=== PATIENT | female | born 1965 | race Caucasian/White ===

== ENCOUNTER 2024-05-12 16:14 | Inpatient (IN) | payer MEDICAID ==
[~2024-05-12] VITALS: Ht 167.6 cm; Wt 60.0 kg
[~2024-05-12 16:14] MED LIST: ATEN100T PO; FLUT1SPR21; GABA-1250 PO; LEVO500T31 PO; METH-1214 PO
[2024-05-12 17:11] LABS: Urine Bacteria None Seen /hpf (None Seen)
--- NOTE | 2024-05-12 17:11 | ED.PDOC ---
GI ASSESSMENT HPI Comments This is a 58-year-old female who comes in with chief complaint of shortness a breath as well as left upper quadrant abdominal pain. The patient states that she is currently on home oxygen at 2 L nasal cannula. She denies any cough for the chest pain. The patient denies any nausea, vomiting or diarrhea. She states that she is having pressure type pain rated as a 5/10 in the left upper quadrant. She has also had some leg edema. Chief Complaint: Abdominal Pain Time Seen by MD: 16:30 Primary Care Provider: NONE Reviewed Notes: Nurses Notes, Cloth Tester Notes, Medications, Allergies (Allergies listed above) Allergies: Coded Allergies: Promethazine (Verified Allergy, Severe, 07/27/18) Propoxyphene (Verified Allergy, Severe, 07/27/18) Aspirin (Verified Allergy, Unknown, 07/27/18) Codeine (Verified Allergy, Unknown, 07/27/18) Erythromycin (Verified Allergy, Unknown, 07/27/18) Ibuprofen (Verified Allergy, Unknown, 07/27/18) Ketorolac Tromethamine (Verified Allergy, Unknown, 07/27/18) Ondansetron (Verified Allergy, Unknown, 07/27/18) Penicillins (Verified Allergy, Unknown, 07/27/18) Home Meds Active Scripts Levofloxacin (Levaquin) 500 Mg Tab, 500 MG PO DAILY, #5 Prov:HENRIK MALIK MD 07/28/18 Gabapentin (Gabapentin) 300 Mg Cap, 300 MG PO TID, #120 CAP Prov:HENRIK MALIK MD 07/28/18 Reported Medications Methadone Hcl (METHADONE HCL TABLET) 10 Mg Tb, 139 MG GT DAILY 07/24/18 Fluticasone Propionate (Nasal) (Allergy Nasal [place] 24 Ho) 50 Mcg/Act Spr, 50 MCG NA DAILY, SPR 07/24/18 Atenolol (Atenolol) 100 Mg Tab, 1 TAB PO BID 04/19/12 Information Source: Patient, Emergency Med Personnel Mode of Arrival: EMS Timing: Days Duration: Since onset Prehospital treatment: None Quality: Aching, Cramping Vomitus: None Stool: Normal Severity: Moderate Recent: None Recent Hx of: None Pain Location: LUQ Modifying Factors: Nothing Associated sign and symptoms: Abdominal Pain Past Medical History PAST MEDICAL HISTORY: CHF, ESRD, HTN, [place] Surgical History: Appendectomy, Hysterectomy, Tonsillectomy Surgical History (Other): Back surgery, neck surgery, knees, carpal tunnel PRODUCT LINE MANAGER History: Denies all PRODUCT LINE MANAGER Hx Family History Family History: Family hx of heart lindsey Social History Smoker: Quit Less Than 1 Year Alcohol: Denies ETOH Use Drugs: Denies Drug Use Lives In: Home Constitutional: denies: chills, diaphoresis, fatigue, fever, malaise, sweats, weakness, others EENTM: denies: blurred vision, double vision, ear bleeding, ear discharge, ear drainage, ear pain, ear ringing, eye pain, eye redness, hearing loss, mouth pain, mouth swelling, nasal discharge, nose bleeding, nose congestion, nose pain, photophobia, tearing, throat pain, throat swelling, voice changes, others Respiratory: reports: shortness of breath; denies: cough, hemoptysis, orthopnea, SOB at rest, SOB with excertion, stridor, wheezing, others Cardiovascular: denies: chest pain, dizzy spells, diaphoresis, Dyspnea on exertion, edema, irregular heart beat, left arm pain, lightheadedness, palpitations, PND, syncope, others Gastrointestinal: reports: abdominal pain; denies: abdomen distended, blood streaked bowels, constipated, diarrhea, dysphagia, difficulty swallowing, hematemesis, melena, nausea, poor appetite, poor fluid intake, rectal bleeding, rectal pain, vomiting, others Genitourinary: denies: abnormal vagina bleeding, burning, dyspareunia, dysuria, flank pain, frequency, hematuria, incontinence, pain, , vagina discharge, urgency, others Neurological: denies: dizziness, fainting, headache, left sided numbness, left sided weakness, numbness, paresthesia, pre-existing deficit, right sided numbness, right sided weakness, seizure, speech problems, tingling, tremors, weakness, others Musculoskeletal: denies: back pain, gout, joint pain, joint swelling, muscle pain, muscle stiffness, neck pain, others Integumetry: denies: bruises, change in color, change in hair/nails, dryness, laceration, lesions, lumps, rash, wounds, others Allergic/Immunocompromised: denies: Difficulty Healing, Frequent Infections, Hives, Itching, others Hematologic/Lymphatic: denies: anemia, blood clots, easy bleeding, easy bruising, swollen glands, others Endocrine: denies: excessive hunger, excessive sweating, excessive thirst, excessive urination, flushing, intolerance to cold, intolerance to heat, unexplained weight gain, unexplained weight loss, others Psychiatric: denies: anxiety, bipolar disorder, depression, hopeless, panic disorder, schizophrenia, sleepless, suicidal, others Physical Exam General Appearance: Mild Distress HEENT: Normal ENT Inspection, Pharynx Normal, TMs Normal Neck: Full Range of Motion, Non-Tender, Normal, Normal Inspection Respiratory: Chest Non-Tender, Lungs Clear, No Accessory Muscle Use, No Respiratory Distress, Normal Breath Sounds Cardiovascular: No Edema, No JVD, No Murmur, No Gallop, Normal Peripheral Pulses, Regular Rate/Rhythm Breast Exam: Deferred Gastrointestinal: LUQ, No Organomegaly, No Pulsatile Mass, Normal Bowel Sounds, Soft, Tenderness Genitalia: Deferred Pelvic: Deferred Rectal: Deferred Extremities: No calf tenderness, Normal capillary refill, Normal inspection, Normal range of motion, Non-tender, No pedal edema Musculoskeletal : Apperance: Normal Neurologic: Alert, evp marketing II-XII nml as Tested, No Motor Deficits, Normal Affect, Normal Mood, No Sensory Deficits Cerebellar Function: Normal Reflexes: Normal Skin: Dry, Normal Color, Warm Lymphatic: No Adenopathy Was a procedure done? Was a procedure done?: No GI differential Dx Differential Diagnosis: Appendicitis, Gastritis/PUD, Gastroenteritis, Inflammatory BD, Pancreatitis, UTI, Electrolyte Imbalance, Food Poisoning X-Ray, Labs, Meds, VS Vital Signs Date Time Temp Pulse Resp B/P (MAP) Pulse Ox O2 Delivery O2 Flow Rate FiO2 05/12/24 20:00 98.4 94 16 159/87 (111) 94 98.4 05/12/24 19:30 Nasal Cannula* 4 36 05/12/24 18:51 79 18 164/87 (112) 96 05/12/24 17:26 Nasal Cannula* 6 44 05/12/24 17:23 98.4 82 20 178/89 (118) 93 98.4 05/12/24 16:16 97.9 109 13 166/76 (106) 97 Lab Test 05/12/24 17:07 05/12/24 17:00 Range/Units White Blood Count 9.7 4.4-10.8 10^3/uL Red Blood Count 3.92 L 4.0-5.20 10^6/uL Hemoglobin 11.5 L 12.2-16.2 g/dL Hematocrit 35.8 L 36.0-46.0 % Mean Corpuscular Volume 91.5 80.0-100.0 fL Mean Corpuscular Hemoglobin 29.3 28.0-32.0 pg Mean Corpuscular Hemoglobin Concent 32.1 32.0-36.0 g/dL Red Cell Distribution Width 18.0 H 11.8-14.3 % Platelet Count 260 140-450 10^3/uL Mean Platelet Volume 6.4 L 6.9-10.8 fL Neutrophils (%) (Auto) 69.1 37.0-80.0 % Lymphocytes (%) (Auto) 22.0 10.0-50.0 % Monocytes (%) (Auto) 6.6 0.0-12.0 % Eosinophils (%) (Auto) 1.7 0.0-7.0 % Basophils (%) (Auto) 0.6 0.0-2.0 % Neutrophils # (Auto) 6.7 1.6-8.6 10 ^3/uL Lymphocytes # (Auto) 2.1 0.4-5.4 10 ^3/uL Monocytes # (Auto) 0.6 0-1.3 10 ^3/uL Eosinophils # (Auto) 0.2 0-0.8 10 ^3/uL Basophils # (Auto) 0.1 0-0.2 10 ^3/uL Nucleated Red Blood Cells 0.1 % Sodium Level 139 136-145 mmol/L Potassium Level 4.2 3.5-5.1 mmol/L Chloride Level 102 98-107 mmol/L Carbon Dioxide Level 32 H 20-31 mmol/L Anion Gap 5 5-15 Blood Urea Nitrogen 10 9-23 mg/dL Creatinine 0.71 0.550-1.02 mg/dL Glomerular Filtration Rate Calc 98 >90 mL/min BUN/Creatinine Ratio 14.1 10.0-20.0 Serum Glucose 101 74-106 mg/dL Calcium Level 10.1 8.7-10.4 mg/dL Total Bilirubin 0.8 0.2-1.0 mg/dL Aspartate Amino Transferase (AST) 18 13-40 U/L Alanine Aminotransferase (ALT) 10 7-40 U/L Alkaline Phosphatase 195 H 46-116 U/L Total Protein 7.8 5.7-8.2 g/dL Albumin 4.2 3.2-4.8 g/dL Lipase 30 12-53 U/L Urine Color Colorless Yellow Urine Clarity Clear Clear Urine pH 7.0 5.0-9.0 Urine Specific [place] 1.005 1.001-1.035 Urine Protein Trace H Negative Urine Ketones Negative Negative Urine Blood Negative Negative /uL Urine Nitrite Negative Negative Urine Bilirubin Negative Negative Urine Urobilinogen Normal Negative mg/dL Urine Leukocyte Esterase 2+ Negative /uL Urine RBC 1 0 - 4 /hpf Urine Microscopic WBC 26 H 0-5 /HPF Urine Squamous Epithelial Cells Few <5 /hpf Urine Bacteria None seen None Seen /hpf Urine Glucose Normal Normal mg/dL Current Medications Medications (Trade) Dose Ordered Sig/Thelma Route Start Time Stop Time Status Last Admin Ceftriaxone Sodium 50 ml @ 100 mls/hr ONCE ONCE IV 05/12/24 18:45 05/12/24 19:14 DC 05/12/24 18:55 CT ABDOMEN AND PELVIS WITHOUT CONTRAST IMPRESSION: 1. Moderate size area of consolidation in the right lower lobe with air bronchograms compatible with airspace disease such as pneumonia. There is small right pleural effusion. 2. Moderate amount of stool in the colon. 3. 1.0 cm hyperdense hemorrhagic/proteinaceous cysts in the mid to lower pole of the left kidney. IV Hep-Lock was established Patient's urine test is positive for UTI The patient was started on Rocephin IV piggyback The patient's CBC and chemistry panel is within normal limits We spoke hospitalist and he is coming and evaluated the patient The patient does have findings pneumonia The patient will have the final disposition done by the hospitalist Images Reviewed?: Images reviewed and evaluated by me Time of 1ST Reevaluation: 17:11 Reevaluation 1ST: Unchanged Patient Education/Counseling: Diagnosis, Treatment, Prognosis Family Education/Counseling: No Family Present Departure 1 Departure Time of Disposition: 21:19 Impression: Primary Impression: Abdominal pain of unknown etiology Additional Impression: Pneumonia Qualified Codes: J18.9 - Pneumonia, unspecified organism Disposition: ADMITTED INPATIENT Condition: Fair Critical Care Note Critical Care Time?: No Stability Stability form required: Yes Unstable for transfer: ED Physician Assesment (Clinical assesment) Heart Score Heart Score: Heart Score Response (Comments) Value History N/A 0 EKG N/A 0 Age N/A 0 Risk Factors N/A 0 Troponin N/A 0 Total 0 I personally scribed for ALLY CHONG MD ([email or web address]) on 05/12/24 at 17:49. Electronically submitted by Tanja Trevino ([email or web address]). ALLY CHONG MD May 12, 2024 17:11
[2024-05-12 17:14] LABS: Basophils # (auto) 0.1 10 ^3/uL (0-0.2); Basophils % (auto) 0.6 % (0.0-2.0); Eosinophils # (auto) 0.2 10 ^3/uL (0-0.8); Eosinophils % (auto) 1.7 % (0.0-7.0); Hematocrit 35.8 % (36.0-46.0); Hemoglobin 11.5 g/dL (12.2-16.2); Lymphocytes # (auto) 2.1 10 ^3/uL (0.4-5.4); Mean Corpuscular Hemoglobin 29.3 pg (28.0-32.0); Mean Corpuscular Hgb Conc. 32.1 g/dL (32.0-36.0); Mean Corpuscular Volume 91.5 fL (80.0-100.0); Monocytes # (auto) 0.6 10 ^3/uL (0-1.3); Monocytes % (auto) 6.6 % (0.0-12.0); Neutrophils # (auto) 6.7 10 ^3/uL (1.6-8.6); Neutrophils % (auto) 69.1 % (37.0-80.0); Nucleated Red Blood Cells % 0.1 %; Platelet Count (auto) 260 10^3/uL (140-450); Red Blood Cells 3.92 10^6/uL (4.0-5.20); White Blood Cell 9.7 10^3/uL (4.4-10.8)
--- NOTE | 2024-05-12 17:30 | DVH ---
CT ABDOMEN AND PELVIS WITHOUT CONTRAST CLINICAL HISTORY: pain TECHNIQUE: Multiple contiguous axial images of the abdomen and pelvis without intravenous contrast. The images were reformatted degenerate coronal and sagittal reconstructions. All CT scans at this medical facility are performed using dose modulation techniques as appropriate t o a performed exam including the following:Automated exposure control was utilized; adjustment of the MA and/or KV according to patient size; and use of iterative reconstruction technique. Radiation Dose Information: CT Dose: CTDI volume is 10.67 mGy. Dose-length product is 554.04 mGy*cm Comparison: None FINDINGS: Evaluation of the abdomen and pelvis is limited without intravenous contrast. The left kidney appears smaller in size in comparison to the right. There is no evidence of nephrolit hiasis or hydronephrosis. There is a 1.0 cm hyperdense cyst in the mid to lower pole of the left kidn ey. The liver, gallbladder, pancreas, adrenal glands, and spleen appear within normal limits. There is no free fluid or free air. The stomach grossly appears unremarkable. The small and large bowel loops demonstrate normal caliber . There is moderate amount of stool intermixed with air throughout the colon. There are calcified atherosclerotic changes in the abdominal aorta. The IVC appears within normal li mits. The bladder is collapsed limiting evaluation. The uterus is surgically absent. . There is no gross e vidence of a pelvic mass. There is no free fluid collection. There is moderate size area of consolidation in the right lower lobe with air bronchograms compatible with airspace disease such as pneumonia. There is small right pleural effusion. There is mild scarri ng versus atelectasis in the left lung base. There is fusion hardware the L4-L5 level generating moderate streak artifact. There are multilevel d egenerative changes in the lumbar spine. IMPRESSION: 1. Moderate size area of consolidation in the right lower lobe with air bronchograms compatible with airspace disease such as pneumonia. There is small right pleural effusion. 2. Moderate amount of stool in the colon. 3. 1.0 cm hyperdense hemorrhagic/proteinaceous cysts in the mid to lower pole of the left kidney. HS:Y
[2024-05-12 17:36] LABS: Alanine Aminotransferase 10 U/L (7-40); Albumin 4.2 g/dL (3.2-4.8); Anion Gap 5 (5-15); Aspartate Aminotransferase 18 U/L (13-40); BUN/Creatinine Ratio 14.1 (10.0-20.0); Bilirubin, Total 0.8 mg/dL (0.2-1.0); Blood Urea Nitrogen 10 mg/dL (9-23); Calcium 10.1 mg/dL (8.7-10.4); Chloride 102 mmol/L (98-107); Glucose 101 mg/dL (74-106); Lipase 30 U/L (12-53); Potassium 4.2 mmol/L (3.5-5.1); Sodium 139 mmol/L (136-145); Total Protein 7.8 g/dL (5.7-8.2)
[2024-05-12 17:58] LABS: Urine Blood Negative /uL (Negative); Urine Clarity Clear (Clear); Urine Color Colorless (Yellow); Urine Protein, UAD TRACE (Negative); Urine Specific Gravity 1.005 (1.001-1.035); Urine Squamous Epithelial Cell FEW /hpf (<5); Urine Urobilinogen Normal (Negative); Urine WBC 26 /HPF (0-5)
[2024-05-12 18:02] LABS: Alkaline Phosphatase 195 U/L (46-116); Carbon Dioxide 32 mmol/L (20-31)
[2024-05-12] MEDS: cefTRIAXone 1GM/50ML D5W 50 ML IV ONE (18:55)
--- NOTE | 2024-05-12 21:08 | DVH ---
XY CHEST TWO VIEWS ROUTINE CLINICAL HISTORY: hypoxia COMPARISON: None TECHNIQUE: Frontal and lateral view of the chest was obtained FINDINGS: Lines and Tubes: None Lungs: Right mid to lower lung zone opacification. Elevated right hemidiaphragm. Mild blunting of the left costophrenic angle with indistinctness of the right costophrenic angle. Pleura: No effusion. No pneumothorax. Cardiomediastinal contours: Unremarkable Bones: No acute osseous abnormality. IMPRESSION: Right mid to lower lung zone pneumonia with small bilateral pleural effusions.
[2024-05-12] MEDS ORDERED: MORPHINE SULFATE INJ 2 MG/ml SYRG IV PRN (21:30)
[2024-05-12] MEDS ORDERED: NITROGLYCERIN 0.4 MG SL TAB SL PRN (21:30)
[2024-05-12] MEDS ORDERED: ACETAMINOPHEN 325 MG TAB PO PRN (21:30)
[2024-05-12] MEDS ORDERED: DOCUSATE SOD 100 MG CAP PO PRN (21:30)
[2024-05-12] MEDS: IPRATROPIUM BROM 0.5 MG/2.5ML INH SOL NEB SCH (21:43)
[2024-05-12] MEDS: ALBUTEROL SULF 2.5 MG/0.5ML(0.5%) NEB SOLN NEB SCH (21:43)
[2024-05-12 21:44] VITALS: PULSE 83; RESP 16; O2SAT 97
[2024-05-12 21:51] VITALS: PULSE 89; RESP 16; O2SAT 100
[2024-05-12 21:57] VITALS: BP 159/87; PULSE 83; RESP 16; O2SAT 99
[2024-05-12] MEDS ORDERED: APIX5TAB PO (23:46)
[2024-05-13] VITALS (19 sets, daily range): BP systolic 98–155; BP diastolic 61–90; PULSE 76–91; RESP 16–20; TEMP 97.5–98.8; O2SAT 94–100
[2024-05-13] MEDS ORDERED: hydrALAZINE HCL 20 MG/ML VL IV PRN (00:15)
[2024-05-13] MEDS: METHADONE HCL 10 MG TAB PO ONE (00:32)
[2024-05-13] MEDS ORDERED: ATEN50TA PO (01:28)
--- NOTE | 2024-05-13 01:29 | DVHHP2 ---
DILLON LUCERO CHUCK TENDER 05/13/24 0129: History of Present Illness Reason for Visit: Shortness of breath History of Present Illness 58-year-old female past medical history of hypertension, CHF, left lower extremity DVT on Eliquis, history of opiate dependence on methadone presents with complaints of worsening shortness of breath and elevated blood pressure. Patient states she was visited by a home health nurse we will advise her to go to the emergency department for evaluation. Patient does endorse been oxygen- dependent 2 L nasal cannula at home. Also endorses bilateral pain under the ribcage. While in the emergency department patient did require additional supplemental oxygen at 4-5 L nasal cannula to maintain oxygen saturation 95%. During the emergency department evaluation CXR did demonstrate right lower lobe pneumonia. At this time patient is not have any fevers, chills, chest pain, nausea, vomiting, palpitations, diaphoresis. Cardiovascular: CHF, HTN Psych: Addictions Smoke: Quit ALCOHOL: none Drugs: None Lives: with Family Review of Systems Constitutional: No: Fever, Chills, Sweats, Weakness, Malaise, Other Eyes: No: Pain, Vision change, Conjunctivae inflammation, Eyelid inflammation, Other, Redness ENT: No: Ear pain, Ear discharge, Nose pain, Nose discharge, Nose congestion, Mouth pain, Mouth swelling, Throat pain, Throat swelling, Other Respiratory: Shortness of breath; No: Cough, Dry, SOB with excertion, Wheezing, Hemoptysis, Pleuritic Pain, Sputum, Wheezing, Other Cardiovascular: Edema; No: Chest Pain, Palpitations, Orthopnea, Paroxysmal Noc. Dyspnea, Lt Headedness, Other Gastrointestinal: No: Nausea, Vomiting, Abdominal Pain, Diarrhea, Constipation, Melena, Hematochezia, Other Genitourinary: No Dysuria, No Frequency, No Incontinence, No Hematuria, No Retention, No Other Musculoskeletal: No: other, neck pain, shoulder pain, arm pain, back pain, hand pain, leg pain, foot pain Skin: No: Rash, Lesions, Jaundice, Bruising, Other Neurological: No: Weakness, Numbness, Incoordination, Change in speech, Confusion, Seizures, Other Allergies: Coded Allergies: Promethazine (Verified Allergy, Severe, 07/27/18) Propoxyphene (Verified Allergy, Severe, 07/27/18) Aspirin (Verified Allergy, Unknown, 07/27/18) Codeine (Verified Allergy, Unknown, 07/27/18) Erythromycin (Verified Allergy, Unknown, 07/27/18) Ibuprofen (Verified Allergy, Unknown, 07/27/18) Ketorolac Tromethamine (Verified Allergy, Unknown, 07/27/18) Ondansetron (Verified Allergy, Unknown, 07/27/18) Penicillins (Verified Allergy, Unknown, 07/27/18) Medications Current Medications Medications Dose Ordered Sig/Thelma Route Start Time Stop Time Status Last Admin Dose Admin Docusate Sodium 100 mg BIDPRN PRN PO 05/12/24 21:30 Acetaminophen 650 mg Q6HP PRN PO 05/12/24 21:30 Nitroglycerin 0.4 mg Q5MINP PRN SL 05/12/24 21:30 Morphine Sulfate 2 mg Q30M PRN IV 05/12/24 21:30 Levofloxacin/ Dextrose 100 ml @ 100 mls/hr DAILY IV 05/13/24 10:00 Albuterol 2.5 mg Q4HR NEB 05/12/24 22:00 05/12/24 21:43 2.5 MG Ipratropium [place] 0.5 mg Q4HR NEB 05/12/24 22:00 05/12/24 21:43 0.5 MG Pantoprazole Sodium 40 mg DAILY IV 05/13/24 10:00 Methadone HCl 10 mg DAILY PO 05/13/24 10:00 Atenolol 50 mg DAILY PO 05/13/24 10:00 Hydralazine HCl 10 mg PRN PRN IV 05/13/24 00:15 Apixaban 5 mg BID PO 05/13/24 10:00 Exam Vital Signs Vital Signs Date Time Temp Pulse Resp B/P (MAP) Pulse Ox O2 Delivery O2 Flow Rate FiO2 05/13/24 00:00 83 14 149/88 (108) 99 05/12/24 21:57 4.0 05/12/24 21:44 Nasal Cannula 05/12/24 21:44 36 05/12/24 20:00 98.4 98.4 General Appearance: Alert, Oriented X3, Cooperative, moderate distress HEENT: Atraumatic, PERRLA Respiratory: Normal air movement, Other (Diminished air exchange bilaterally. Right lower lobe rhonchi) Cardiovascular: Regular rate, Normal S1, Normal S2 Abdominal: Normal bowel sounds, Soft, No tenderness Extremities: No clubbing, No cyanosis, Other (BLE edema) Skin: No rashes, No breakdown Neuro: Normal speech, Strength at 5/5 X4 ext Psych/Mental Status: Mental status NL, Mood NL Labs/Xrays Labs Test 05/12/24 17:07 05/12/24 17:00 Range/Units White Blood Count 9.7 4.4-10.8 10^3/uL Red Blood Count 3.92 L 4.0-5.20 10^6/uL Hemoglobin 11.5 L 12.2-16.2 g/dL Hematocrit 35.8 L 36.0-46.0 % Mean Corpuscular Volume 91.5 80.0-100.0 fL Mean Corpuscular Hemoglobin 29.3 28.0-32.0 pg Mean Corpuscular Hemoglobin Concent 32.1 32.0-36.0 g/dL Red Cell Distribution Width 18.0 H 11.8-14.3 % Platelet Count 260 140-450 10^3/uL Mean Platelet Volume 6.4 L 6.9-10.8 fL Neutrophils (%) (Auto) 69.1 37.0-80.0 % Lymphocytes (%) (Auto) 22.0 10.0-50.0 % Monocytes (%) (Auto) 6.6 0.0-12.0 % Eosinophils (%) (Auto) 1.7 0.0-7.0 % Basophils (%) (Auto) 0.6 0.0-2.0 % Neutrophils # (Auto) 6.7 1.6-8.6 10 ^3/uL Lymphocytes # (Auto) 2.1 0.4-5.4 10 ^3/uL Monocytes # (Auto) 0.6 0-1.3 10 ^3/uL Eosinophils # (Auto) 0.2 0-0.8 10 ^3/uL Basophils # (Auto) 0.1 0-0.2 10 ^3/uL Nucleated Red Blood Cells 0.1 % Sodium Level 139 136-145 mmol/L Potassium Level 4.2 3.5-5.1 mmol/L Chloride Level 102 98-107 mmol/L Carbon Dioxide Level 32 H 20-31 mmol/L Anion Gap 5 5-15 Blood Urea Nitrogen 10 9-23 mg/dL Creatinine 0.71 0.550-1.02 mg/dL Glomerular Filtration Rate Calc 98 >90 mL/min BUN/Creatinine Ratio 14.1 10.0-20.0 Serum Glucose 101 74-106 mg/dL Calcium Level 10.1 8.7-10.4 mg/dL Total Bilirubin 0.8 0.2-1.0 mg/dL Aspartate Amino Transferase (AST) 18 13-40 U/L Alanine Aminotransferase (ALT) 10 7-40 U/L Alkaline Phosphatase 195 H 46-116 U/L Total Protein 7.8 5.7-8.2 g/dL Albumin 4.2 3.2-4.8 g/dL Lipase 30 12-53 U/L Urine Color Colorless Yellow Urine Clarity Clear Clear Urine pH 7.0 5.0-9.0 Urine Specific [place] 1.005 1.001-1.035 Urine Protein Trace H Negative Urine Ketones Negative Negative Urine Blood Negative Negative /uL Urine Nitrite Negative Negative Urine Bilirubin Negative Negative Urine Urobilinogen Normal Negative mg/dL Urine Leukocyte Esterase 2+ Negative /uL Urine RBC 1 0 - 4 /hpf Urine Microscopic WBC 26 H 0-5 /HPF Urine Squamous Epithelial Cells Few <5 /hpf Urine Bacteria None seen None Seen /hpf Urine Glucose Normal Normal mg/dL Assessment/Plan Assessment/Plan Hypoxia Right lobe pneumonia UTI Hx left lower extremity DVT on Eliquis Hx heroin use currently on methadone Plan Admit telemetry Consult pulmonology. Bronchodilators. As needed supplemental O2 to maintain O2 saturation greater Than 93%. RT monitoring. IV ABX Urine culture pending Continue home medications. Social service consult for home safety evaluation Gi ppx protonix / DVT ppx SCD on oral anticoagulation Plan discussed with: Patient My Orders Orders - DILLON LUCERO NP Procedure Category Date Status Time Chest Two Views XY 05/12/24 Resulted Routine 20:39 Admit ADMIT 05/12/24 Transmitted 21:16 Code Status CODE 05/12/24 Transmitted 21:16 Vital Signs LAN 05/12/24 In Process 21:16 Review Orders With LAN 05/12/24 In Process Adm. 21:16 Encourage Activity As LAN 05/12/24 In Process Tolerate 21:16 Consistent DIET 05/13/24 Transmitted Carb(Ccho)Diabetes Breakfast Oxygen By Face Mask RT 05/12/24 Transmitted 21:16 Pulse Ox Cont Per Day RT 05/12/24 Logged 21:16 Pulse Oxymetry RT 05/12/24 Transmitted Assessment - 2 21:16 Docusate Sodium PHA 05/12/24 In Process Capsule (Colace 21:30 Acetaminophen Tablet PHA 05/12/24 In Process (Tylenol Tablet) 21:30 Notify Of Changes LAN 05/12/24 In Process From Base 21:16 Advance Directive LAN 05/12/24 In Process 21:16 Basic Metabolic Panel LAB 05/13/24 Logged 05:00 Basic Metabolic Panel LAB 05/14/24 Verified 05:00 Basic Metabolic Panel LAB 05/15/24 Verified 05:00 Basic Metabolic Panel LAB 05/16/24 Verified 05:00 Complete Blood Count LAB 05/13/24 Logged 05:00 Complete Blood Count LAB 05/14/24 Verified 05:00 Complete Blood Count LAB 05/15/24 Verified 05:00 Complete Blood Count LAB 05/16/24 Verified 05:00 Patient Condition ORDERS 05/12/24 Transmitted 21:16 Allergies LAN 05/12/24 In Process 21:16 Nitroglycerin PHA 05/12/24 In Process Sublingual (Ntrostat 21:30 Morphine Sulfate PHA 05/12/24 In Process Injection 21:30 Stat Ekg For Chest LAN 05/12/24 In Process Pain 21:16 Notify Md Of Changes LAN 05/12/24 In Process From Base 21:16 Rubber Roller Grinder Operator For LAN 05/12/24 In Process 24 Hours 21:16 Emergency Dysrhythmia LAN 05/12/24 In Process Protocol 21:16 Rhythm Strips Once LAN 05/12/24 In Process Every Shift 21:16 Oxygen By Nasal RT 05/12/24 Transmitted Cannula 21:16 *Consult CONS 05/12/24 Transmitted / 21:16 Levofloxacin 500mg PHA 05/13/24 In Process (Levaquin 500mg/ 100m 10:00 Albuterol Medneb PHA 05/12/24 In Process (Ventolin Medneb) 22:00 Ipratropium Medneb PHA 05/12/24 In Process (Atrovent Medneb) 22:00 Communication Order ORDERS 05/12/24 Transmitted 21:24 Urine Bacterial TAMIKO 05/12/24 In Process Culture 22:29 * Portrait Painter CONS 05/12/24 Transmitted Consult Pantoprazole PHA 05/13/24 In Process (Protonix) 10:00 Methadone Hcl Tablet PHA 05/13/24 In Process (Methadone Hcl Tabl 10:00 Atenolol Tablet PHA 05/13/24 In Process (Tenormin Tablet) 10:00 Hydralazine Injection PHA 05/13/24 In Process (Apresoline Inject 00:15 Apixaban (Eliquis) PHA 05/13/24 In Process 10:00 Date of Service: May 13, 2024 Billing Provider: CHI KLINE MD Common Visit Codes: NOT BILLABLE CHI KLINE MD 05/13/24 1503: History of Present Illness Additional Comments Additional Comments Patient's chart is reviewed and discussed with the nurse practitioner. Patient is seen and evaluated by me this afternoon. I agree with the nurse practitioner's evaluation, documentation, assessment and care plan as outlined. Review of Systems Allergies: Coded Allergies: Promethazine (Verified Allergy, Severe, 07/27/18) Propoxyphene (Verified Allergy, Severe, 07/27/18) Aspirin (Verified Allergy, Unknown, 07/27/18) Codeine (Verified Allergy, Unknown, 07/27/18) Erythromycin (Verified Allergy, Unknown, 07/27/18) Ibuprofen (Verified Allergy, Unknown, 07/27/18) Ketorolac Tromethamine (Verified Allergy, Unknown, 07/27/18) Ondansetron (Verified Allergy, Unknown, 07/27/18) Penicillins (Verified Allergy, Unknown, 07/27/18) DILLON LUCERO NP May 13, 2024 01:29 CHI KLINE MD May 13, 2024 15:03
[2024-05-13] MEDS: METHADONE HCL 10 MG TAB PO SCH ×2 (06:00→14:37)
[2024-05-13 07:27] LABS: Basophils # (auto) 0 10 ^3/uL (0-0.2); Basophils % (auto) 0.7 % (0.0-2.0); Eosinophils # (auto) 0.1 10 ^3/uL (0-0.8); Hematocrit 32.4 % (36.0-46.0); Hemoglobin 10.4 g/dL (12.2-16.2); Lymphocytes # (auto) 1.8 10 ^3/uL (0.4-5.4); Lymphocytes % (auto) 29.2 % (10.0-50.0); Mean Corpuscular Hemoglobin 29.4 pg (28.0-32.0); Mean Corpuscular Hgb Conc. 32.2 g/dL (32.0-36.0); Mean Corpuscular Volume 91.1 fL (80.0-100.0); Monocytes # (auto) 0.6 10 ^3/uL (0-1.3); Neutrophils # (auto) 3.5 10 ^3/uL (1.6-8.6); Neutrophils % (auto) 58.1 % (37.0-80.0); Nucleated Red Blood Cells % 0.2 %; Platelet Count (auto) 237 10^3/uL (140-450); Red Blood Cells 3.55 10^6/uL (4.0-5.20); Red Cell Distribution Width 17.6 % (11.8-14.3); White Blood Cell 6.1 10^3/uL (4.4-10.8)
[2024-05-13 07:43] LABS: Anion Gap 3 (5-15); Chloride 104 mmol/L (98-107); Potassium 4.6 mmol/L (3.5-5.1); Sodium 140 mmol/L (136-145)
[2024-05-13 07:44] LABS: Calcium 9.9 mg/dL (8.7-10.4)
[2024-05-13 07:48] LABS: Carbon Dioxide 33 mmol/L (20-31)
[2024-05-13 07:49] LABS: BUN/Creatinine Ratio 11.4 (10.0-20.0); Blood Urea Nitrogen 9 mg/dL (9-23); Glucose 81 mg/dL (74-106)
[2024-05-13] MEDS: ATENOLOL 25 MG TAB PO SCH (09:57)
[2024-05-13] MEDS: PANTOPRAZOLE 40 MG/10 ML VIAL INJ IV SCH (09:58)
[2024-05-13] MEDS: APIXABAN 5 MG TAB PO SCH (09:58)
[2024-05-13] MEDS ORDERED: ENOXAPARIN SOD 40 MG/0.4 ML SYRINGE SC SCH (10:00)
[2024-05-13] MEDS: levoFLOXacin 500MG 100 ML IV SCH (10:00)
[2024-05-13] MEDS ORDERED: METHADONE HCL 10 MG TAB PO SCH (10:00)
[2024-05-13] MEDS ORDERED: ATENOLOL 25 MG TAB PO SCH (10:00)
[2024-05-13] MEDS: cefTRIAXone 1GM/50ML D5W 50 ML IV SCH (14:36)
[2024-05-13] MEDS: LACTULOSE 20Gm/30ML SOLN PO ONE (14:37)
[2024-05-13] MEDS: LACTULOSE 20Gm/30ML SOLN PO SCH (21:32)
--- NOTE | 2024-05-13 23:41 | DVHINCON2 ---
Date of service: May 13, 2024 Referring Physician Toribio Phelps NP Reason for Consultation Acute hypoxic respiratory failure, pneumonia, pleural effusions History of Present Illness A 58-year-old woman with past medical history of hypertension, CHF, left lower extremity DVT on Eliquis, history of opiate dependence, on methadone, who presented to ED on 05/12/24 with complaints of worsening shortness of breath and elevated blood pressure. She was advised by home health nurse to go to the emergency department for evaluation. Patient reports being oxygen-dependent, 2 L nasal cannula at home. She c/o bilateral pain under the ribcage. While in the emergency department patient did require additional supplemental oxygen at 4-5 L nasal cannula to maintain oxygen saturation 95%. CXR demonstrated right lower lobe pneumonia. Patient was admitted for further care and pulmonary consultation is requested for evaluation and management due to the above findings. Review of Systems: 14-point review of systems negative unless otherwise noted above. Past Medical History: Hypertension, CHF, left lower extremity DVT on Eliquis, history of opiate depe ndence, on methadone. Past Surgical History: None Medications: Reviewed. Allergies: Promethazine Propoxyphene Aspirin Codeine Erythromycin Ibuprofen Ketorolac Tromethamine Ondansetron Penicillins. Family History: No family history of premature CAD. No family history of lung disorders. Social History: Former smoker. No alcohol use. Drugs: Heroin use, on methadone. Family History: Diabetes mellitus G8 MOTHER, FH: heart disease G8 FATHER, Allergies: Coded Allergies: Promethazine (Verified Allergy, Severe, 07/27/18) Propoxyphene (Verified Allergy, Severe, 07/27/18) Aspirin (Verified Allergy, Unknown, 07/27/18) Codeine (Verified Allergy, Unknown, 07/27/18) Erythromycin (Verified Allergy, Unknown, 07/27/18) Ibuprofen (Verified Allergy, Unknown, 07/27/18) Ketorolac Tromethamine (Verified Allergy, Unknown, 07/27/18) Ondansetron (Verified Allergy, Unknown, 07/27/18) Penicillins (Verified Allergy, Unknown, 07/27/18) Home Meds Active Scripts Famotidine (Pepcid AC) 20 Mg Tab, 20 MG PO DAILY, #10 TAB Prov:CHI KLINE MD 05/14/24 Ipratropium-Albuterol (Ipratropium [place]/Albut) 1 Eusebia Eusebia, 1 EUSEBIA IN TID, #30 ML Prov:CHI KLINE MD 05/14/24 Prednisone (Prednisone) 20 Mg Tab, 20 MG PO BID, #10 MG Prov:CHI KLINE MD 05/14/24 Doxycycline (Monohydrate) (Doxycycline) 100 Mg Cap, 100 MG PO BID, #10 CAP Prov:CHI KLINE MD 05/14/24 Apixaban Base (ELIQUIS) 5 Mg Tab, 5 MG PO BID, #14 TAB Prov:CHI KLINE MD 05/14/24 Reported Medications Atenolol (Atenolol) 50 Mg Tab, 50 MG PO BID 05/13/24 Methadone Hcl (METHADONE HCL TABLET) 10 Mg Tb, 115 MG PO DAILY 07/24/18 Current Medications Current Medications Medications (Trade) Dose Ordered Sig/Thelma Route PRN Reason Start Time Stop Time Status Last Admin Enoxaparin Sodium (Lovenox) 40 mg DAILY SC 05/13/24 10:00 05/13/24 00:12 DC Levofloxacin/ Dextrose 100 ml @ 100 mls/hr DAILY IV 05/13/24 10:00 05/13/24 14:01 DC Pantoprazole Sodium (Protonix) 40 mg DAILY IV 05/13/24 10:00 05/13/24 14:13 DC 05/13/24 09:58 Methadone HCl (Methadone HCl Tablet) 10 mg DAILY PO 05/13/24 10:00 05/13/24 02:06 DC Atenolol (Tenormin Tablet) 50 mg DAILY PO 05/13/24 10:00 05/13/24 02:12 DC Hydralazine HCl (Apresoline Injection) 10 mg PRN PRN IV SBP>160 05/13/24 00:15 Apixaban (Eliquis) 5 mg BID PO 05/13/24 10:00 05/13/24 21:32 Methadone HCl (Methadone HCl Tablet) 20 mg TID PO 05/13/24 06:00 05/13/24 14:13 DC 05/13/24 06:00 Atenolol (Tenormin Tablet) 50 mg BID PO 05/13/24 10:00 05/13/24 21:33 Ceftriaxone Sodium 50 ml @ 100 mls/hr DAILY@09 IV 05/13/24 14:08 05/13/24 14:36 Methadone HCl (Methadone HCl Tablet) 115 mg DAILY PO 05/13/24 14:15 05/13/24 14:37 Lactulose 30 ml BID PO 05/13/24 22:00 Vital Signs Vital Signs Date Time Temp Pulse Resp B/P (MAP) Pulse Ox O2 Delivery O2 Flow Rate FiO2 05/13/24 21:46 89 18 100 05/13/24 21:36 Nasal Cannula* 2 28 05/13/24 21:33 128/77 05/13/24 21:00 98.8 98.8 Physical Exam Gen.: Patient lying in bed in no apparent distress. On supplemental oxygen. Head: Normocephalic, atraumatic. Eyes: EOMI/PERRLA. Ears: Normal hearing. Normal anatomy. Neck/trachea: Trachea midline, supple. Nose: Normal external anatomy. Mouth: Moist mucous membranes. Chest: Decreased air entry bilaterally. No wheezing or rhonchi. Cardiovascular: Positive S1, positive S2. Regular rate and rhythm. Abdomen: Positive bowel sounds in all 4 quadrants. Soft, non-tender, non- distended. : Deferred. Rectal: Deferred. Skin: Warm, dry. Intact. Extremities: 2+ radial pulses bilaterally. No lower extremity edema. Neuro: Awake, alert, oriented x3. No gross motor or sensory deficits. Cranial nerves II through XII intact. Gait not assessed. Labs/Diagnostic Data Labs Test 05/13/24 06:44 05/12/24 17:07 05/12/24 17:00 Range/Units White Blood Count 6.1 # 4.4-10.8 10^3/uL Red Blood Count 3.55 L 4.0-5.20 10^6/uL Hemoglobin 10.4 L 12.2-16.2 g/dL Hematocrit 32.4 L 36.0-46.0 % Mean Corpuscular Volume 91.1 80.0-100.0 fL Mean Corpuscular Hemoglobin 29.4 28.0-32.0 pg Mean Corpuscular Hemoglobin Concent 32.2 32.0-36.0 g/dL Red Cell Distribution Width 17.6 H 11.8-14.3 % Platelet Count 237 140-450 10^3/uL Mean Platelet Volume 6.5 L 6.9-10.8 fL Neutrophils (%) (Auto) 58.1 37.0-80.0 % Lymphocytes (%) (Auto) 29.2 10.0-50.0 % Monocytes (%) (Auto) 10.0 0.0-12.0 % Eosinophils (%) (Auto) 2.0 0.0-7.0 % Basophils (%) (Auto) 0.7 0.0-2.0 % Neutrophils # (Auto) 3.5 1.6-8.6 10 ^3/uL Lymphocytes # (Auto) 1.8 0.4-5.4 10 ^3/uL Monocytes # (Auto) 0.6 0-1.3 10 ^3/uL Eosinophils # (Auto) 0.1 0-0.8 10 ^3/uL Basophils # (Auto) 0 0-0.2 10 ^3/uL Nucleated Red Blood Cells 0.2 % Sodium Level 140 136-145 mmol/L Potassium Level 4.6 3.5-5.1 mmol/L Chloride Level 104 98-107 mmol/L Carbon Dioxide Level 33 H 20-31 mmol/L Anion Gap 3 L 5-15 Blood Urea Nitrogen 9 9-23 mg/dL Creatinine 0.79 0.550-1.02 mg/dL Glomerular Filtration Rate Calc 86 >90 mL/min BUN/Creatinine Ratio 11.4 10.0-20.0 Serum Glucose 81 74-106 mg/dL Calcium Level 9.9 8.7-10.4 mg/dL Total Bilirubin 0.8 0.2-1.0 mg/dL Aspartate Amino Transferase (AST) 18 13-40 U/L Alanine Aminotransferase (ALT) 10 7-40 U/L Alkaline Phosphatase 195 H 46-116 U/L Total Protein 7.8 5.7-8.2 g/dL Albumin 4.2 3.2-4.8 g/dL Lipase 30 12-53 U/L Urine Color Colorless Yellow Urine Clarity Clear Clear Urine pH 7.0 5.0-9.0 Urine Specific [place] 1.005 1.001-1.035 Urine Protein Trace H Negative Urine Ketones Negative Negative Urine Blood Negative Negative /uL Urine Nitrite Negative Negative Urine Bilirubin Negative Negative Urine Urobilinogen Normal Negative mg/dL Urine Leukocyte Esterase 2+ Negative /uL Urine RBC 1 0 - 4 /hpf Urine Microscopic WBC 26 H 0-5 /HPF Urine Squamous Epithelial Cells Few <5 /hpf Urine Bacteria None seen None Seen /hpf Urine Glucose Normal Normal mg/dL Assessment Impression: Acute hypoxic respiratory failure Dependence on supplemental oxygen Pneumonia, likely gram negative Urinary tract infection Left lower extremity DVT, on Eliquis Heroin use, on methadone Constipation Hx of nicotine dependence Pleural effusions Atelectasis Plan: Supplemental oxygen 2 LPM NC Titrate to keep O2 sats above 92%. Taper O2 as tolerated. CXR reviewed, demonstrates right mid-lower lung zone opacities. Continue bronchodilators. Continue antibiotics Incentive spirometry Send sputum cultures On lactulose Methadone Monitor renal function. Monitor electrolytes. Supplement as necessary. Monitor ins and outs. DVT prophylaxis. Prognosis: Poor given patient's multiple co-morbidities. Rest of plan per hospitalist and other consultants. Thank you, RONY Phelps, for allowing me to participate in this patient's care. Further recommendations will depend on the patient's clinical course. Please do not hesitate to contact me if you have any questions or concerns. This medical document was created using an electronic medical record system with [employer] dictation system. Although these documentations are being carefully reviewed, there may still be some phonetic and typographical changes. The errors are purely typographical, due to imperfection on the software program, and do not reflect any compromise in the patient's medical care. Plan discussed with: Other (RN/RONY Phelps/) YELENA MIKE MD May 13, 2024 23:41
[2024-05-14] VITALS (14 sets, daily range): BP systolic 124–144; BP diastolic 70–89; PULSE 80–116; RESP 16–20; TEMP 98–98.7; O2SAT 94–100
[2024-05-14 07:46] LABS: Basophils # (auto) 0 10 ^3/uL (0-0.2); Basophils % (auto) 0.5 % (0.0-2.0); Eosinophils # (auto) 0.2 10 ^3/uL (0-0.8); Eosinophils % (auto) 2.5 % (0.0-7.0); Hematocrit 34.1 % (36.0-46.0); Hemoglobin 10.6 g/dL (12.2-16.2); Mean Corpuscular Hemoglobin 28.6 pg (28.0-32.0); Mean Corpuscular Volume 92.1 fL (80.0-100.0); Monocytes # (auto) 0.7 10 ^3/uL (0-1.3); Monocytes % (auto) 9.3 % (0.0-12.0); Neutrophils # (auto) 4.4 10 ^3/uL (1.6-8.6); Neutrophils % (auto) 60.7 % (37.0-80.0); Nucleated Red Blood Cells % 0.2 %; Platelet Count (auto) 235 10^3/uL (140-450); Red Blood Cells 3.71 10^6/uL (4.0-5.20); Red Cell Distribution Width 18.1 % (11.8-14.3); White Blood Cell 7.3 10^3/uL (4.4-10.8)
[2024-05-14 07:54] LABS: Anion Gap 6 (5-15); Calcium 9.9 mg/dL (8.7-10.4); Chloride 101 mmol/L (98-107); Potassium 4.7 mmol/L (3.5-5.1); Sodium 139 mmol/L (136-145)
[2024-05-14 08:00] LABS: BUN/Creatinine Ratio 10.7 (10.0-20.0); Glucose 84 mg/dL (74-106)
[2024-05-14 08:08] LABS: Blood Urea Nitrogen 8 mg/dL (9-23); Carbon Dioxide 32 mmol/L (20-31)
[2024-05-14] MEDS ORDERED: FAMO-161 PO (14:37)
[2024-05-14] MEDS ORDERED: DOXY100C79 PO (14:37)
[2024-05-14] MEDS ORDERED: PRED20TA2 PO (14:37)
[2024-05-14] MEDS ORDERED: APIX5TAB PO (14:37)
[2024-05-14] MEDS ORDERED: IPRA0.00 IN (14:37)
--- NOTE | 2024-05-14 15:08 | DVHDS2 ---
Discharge Summary Date of Admission May 12, 2024 at 21:16 Date of Discharge: May 14, 2024 Labs/Diagnostic Data: Laboratory Results Test 05/14/24 06:15 05/12/24 17:07 05/12/24 17:00 White Blood Count 7.3 10^3/uL (4.4-10.8) Red Blood Count 3.71 10^6/uL (4.0-5.20) Hemoglobin 10.6 g/dL (12.2-16.2) Hematocrit 34.1 % (36.0-46.0) Mean Corpuscular Volume 92.1 fL (80.0-100.0) Mean Corpuscular Hemoglobin 28.6 pg (28.0-32.0) Mean Corpuscular Hemoglobin Concent 31.0 g/dL (32.0-36.0) Red Cell Distribution Width 18.1 % (11.8-14.3) Platelet Count 235 10^3/uL (140-450) Mean Platelet Volume 6.7 fL (6.9-10.8) Neutrophils (%) (Auto) 60.7 % (37.0-80.0) Lymphocytes (%) (Auto) 27.0 % (10.0-50.0) Monocytes (%) (Auto) 9.3 % (0.0-12.0) Eosinophils (%) (Auto) 2.5 % (0.0-7.0) Basophils (%) (Auto) 0.5 % (0.0-2.0) Neutrophils # (Auto) 4.4 10 ^3/uL (1.6-8.6) Lymphocytes # (Auto) 2.0 10 ^3/uL (0.4-5.4) Monocytes # (Auto) 0.7 10 ^3/uL (0-1.3) Eosinophils # (Auto) 0.2 10 ^3/uL (0-0.8) Basophils # (Auto) 0 10 ^3/uL (0-0.2) Nucleated Red Blood Cells 0.2 % Sodium Level 139 mmol/L (136-145) Potassium Level 4.7 mmol/L (3.5-5.1) Chloride Level 101 mmol/L (98-107) Carbon Dioxide Level 32 mmol/L (20-31) Anion Gap 6 (5-15) Blood Urea Nitrogen 8 mg/dL (9-23) Creatinine 0.75 mg/dL (0.550-1.02) Glomerular Filtration Rate Calc 92 mL/min (>90) BUN/Creatinine Ratio 10.7 (10.0-20.0) Serum Glucose 84 mg/dL (74-106) Calcium Level 9.9 mg/dL (8.7-10.4) Total Bilirubin 0.8 mg/dL (0.2-1.0) Aspartate Amino Transferase (AST) 18 U/L (13-40) Alanine Aminotransferase (ALT) 10 U/L (7-40) Alkaline Phosphatase 195 U/L (46-116) Total Protein 7.8 g/dL (5.7-8.2) Albumin 4.2 g/dL (3.2-4.8) Lipase 30 U/L (12-53) Urine Color Colorless (Yellow) Urine Clarity Clear (Clear) Urine pH 7.0 (5.0-9.0) Urine Specific [place] 1.005 (1.001-1.035) Urine Protein Trace (Negative) Urine Ketones Negative (Negative) Urine Blood Negative /uL (Negative) Urine Nitrite Negative (Negative) Urine Bilirubin Negative (Negative) Urine Urobilinogen Normal mg/dL (Negative) Urine Leukocyte Esterase 2+ /uL (Negative) Urine RBC 1 /hpf (0 - 4) Urine Microscopic WBC 26 /HPF (0-5) Urine Squamous Epithelial Cells Few /hpf (<5) Urine Bacteria None seen /hpf (None Seen) Urine Glucose Normal mg/dL (Normal) Other Laboratory Tests 05/14/24 06:15 Brief Hx & Hospital Course: 58-year-old female past medical history of hypertension, CHF, left lower extremity DVT on Eliquis, history of opiate dependence on methadone presents with complaints of worsening shortness of breath and elevated blood pressure. Patient states she was visited by a home health nurse we will advise her to go to the emergency department for evaluation. Patient does endorse been oxygen- dependent 2 L nasal cannula at home. Also endorses bilateral pain under the ribcage. While in the emergency department patient did require additional supplemental oxygen at 4-5 L nasal cannula to maintain oxygen saturation 95%. During the emergency department evaluation CXR did demonstrate right lower lobe pneumonia. At this time patient is not have any fevers, chills, chest pain, nausea, vomiting, palpitations, diaphoresis. She is admitted and evaluated by dog or horse racing official. Patient treated for her COPD exacerbation. Her laboratory workup and vitals remained stable. She was feeling better. She wants to go home. Oxygenating normally on her home oxygen. Given her symptoms resolved and she was back to baseline normal status it is felt she can be safely discharged home. Patient is advised to continue the medications as he is prescribed and resume home medications. She was to follow up with PCP and dog or horse racing official as needed. Patient/family verbalized understanding of her hospital diagnosis, treatment she received, discharge medications, discharge instructions and agree with the follow up plan of care. Condition at Discharge: Stable Final Diagnosis/Problems List COPD exacerbation Discharge Disposition: Home Discharge Instruct/Medications Diet: Consistent carbohydrate, Cardiac 2g Na,low cholest Activity: No Restrictions, As Tolerated Follow Up/Referral: Primary care physician in two weeks for further management of your COPD/breathing problem Medications: As prescribed and home medications New Medications: Doxycycline (Monohydrate) (Doxycycline) 100 Mg Cap 100 MG PO BID, #10 CAP Famotidine (Pepcid AC) 20 Mg Tab 20 MG PO DAILY, #10 TAB Ipratropium-Albuterol (Ipratropium [place]/Albut) 1 Eusebia Eusebia 1 EUSEBIA IN TID, #30 ML Prednisone (Prednisone) 20 Mg Tab 20 MG PO BID, #10 MG Continued Medications: Apixaban Base (Eliquis) 5 Mg Tab 5 MG PO BID, #14 TAB (This prescription has been renewed) Atenolol (Atenolol) 50 Mg Tab 50 MG PO BID Methadone Hcl (Methadone Hcl Tablet) 10 Mg Tb 115 MG PO DAILY Discharge Statement: "Patient was advised to return to the ER or call 911 if any headaches, dizziness, shortness of breath, chest pain, abdominal pain, bleeding, fevers, or worsening of medical condition. Patient was counseled about treatment plan, medications, possible side effects, patientverbalized understanding. All questions were answered to the best of my ability. This discharge took greater then 30 minutes in planning, reviewing documentation, counseling the patient, and discussing with other team members." ASSESSMENT ASSESSMENT Assessment COPD exacerbation CHI KLINE MD May 14, 2024 15:08
--- NOTE | 2024-05-14 22:49 | DVHPN2 ---
Progress Note - Dictate Date Seen: May 14, 2024 Medical Necessity Reason Pt with a Central, PICC or Fol: No Subjective Patient seen and examined at bedside. Remains on supplemental oxygen Overnight events reviewed. vital signs Vital Sign Date Time Temp Pulse Resp B/P (MAP) Pulse Ox O2 Delivery O2 Flow Rate FiO2 05/14/24 15:08 98.0 116 19 94 05/14/24 13:56 Nasal Cannula 2.0 05/14/24 13:56 28 05/14/24 12:55 144/89 (107) Total Intake and Output 05/13/24 05/13/24 05/14/24 15:00 23:00 07:00 Intake Total 1620 ml 700 ml Balance 1620 ml 700 ml objective Gen.: Patient lying in bed in no apparent distress. On supplemental oxygen. Head: Normocephalic, atraumatic. Eyes: EOMI/PERRLA. Ears: Normal hearing. Normal anatomy. Neck/trachea: Trachea midline, supple. Nose: Normal external anatomy. Mouth: Moist mucous membranes. Chest: Decreased air entry bilaterally. No wheezing or rhonchi. Cardiovascular: Positive S1, positive S2. Regular rate and rhythm. Abdomen: Positive bowel sounds in all 4 quadrants. Soft, non-tender, non- distended. : Deferred. Rectal: Deferred. Skin: Warm, dry. Intact. Extremities: 2+ radial pulses bilaterally. No lower extremity edema. Neuro: Awake, alert, oriented x3. No gross motor or sensory deficits. Cranial nerves II through XII intact. Gait not assessed. laboratory and microbiology Laboratory Tests 05/14/24 06:15 Test 05/14/24 06:15 Range/Units Serum Glucose 84 74-106 mg/dL Assessment/Plan Impression: Acute hypoxic respiratory failure Dependence on supplemental oxygen Pneumonia, likely gram negative Urinary tract infection Left lower extremity DVT, on Eliquis Heroin use, on methadone Constipation Hx of nicotine dependence Pleural effusions Atelectasis Plan: Supplemental oxygen 2 LPM NC Titrate to keep O2 sats above 92%. Taper O2 as tolerated. CXR reviewed, demonstrates right mid-lower lung zone opacities. Continue bronchodilators. Complete antibiotics Incentive spirometry Send sputum cultures Methadone Monitor renal function. Monitor electrolytes. Supplement as necessary. Monitor ins and outs. DVT prophylaxis. Disposition per hospitalist. Prognosis: Poor given patient's multiple co-morbidities. Rest of plan per hospitalist and other consultants. Thank you, RONY Phelps, for allowing me to participate in this patient's care. Further recommendations will depend on the patient's clinical course. Please do not hesitate to contact me if you have any questions or concerns. This medical document was created using an electronic medical record system with [employer] dictation system. Although these documentations are being carefully reviewed, there may still be some phonetic and typographical changes. The errors are purely typographical, due to imperfection on the software program, and do not reflect any compromise in the patient's medical care. Plan discussed with: Patient, Other (RN) YELENA MIKE MD May 14, 2024 22:49
== END 2024-05-14 16:00 | disposition home health service (06) | DRG 137 ==
LOC: EDBD 16:14 → ER 16:14 → TELE 21:16 → TELE-WESTW 05-13 01:10
PROVIDERS: ADMIT Nurse Practitioner Family; ATTEND Nurse Practitioner Family
DX: J15.69 Pneumonia due to other Gram-negative bacteria (principal); J96.20 Acute and chronic respiratory failure, unspecified whether with hypoxia or hypercapnia; Z99.81 Dependence on supplemental oxygen; J44.1 Chronic obstructive pulmonary disease with (acute) exacerbation; N39.0 Urinary tract infection, site not specified; F11.90 Opioid use, unspecified, uncomplicated; J98.11 Atelectasis; K59.00 Constipation, unspecified; Z79.01 Long term (current) use of anticoagulants; Z88.1 Allergy status to other antibiotic agents; Z88.0 Allergy status to penicillin; Z88.5 Allergy status to narcotic agent; Z88.6 Allergy status to analgesic agent; I25.2 Old myocardial infarction; Z90.710 Acquired absence of both cervix and uterus; Z90.49 Acquired absence of other specified parts of digestive tract; Z87.891 Personal history of nicotine dependence; Z86.718 Personal history of other venous thrombosis and embolism; Z83.3 Family history of diabetes mellitus; Z82.49 Family history of ischemic heart disease and other diseases of the circulatory system; R10.9 Unspecified abdominal pain
CPT/HCPCS: 36415; 71046; 74176; 80048; 80053; 81001; 83690; 85025; 87086; 94640; 97110; 97116; 97163; 97530; G0378; J2470